=== PATIENT | male | born 1975 | race Caucasian/White ===

== ENCOUNTER 2018-02-20 13:00 | Outpatient (RCR) | payer BC | END 2018-05-05 | disposition home or self-care (01) | LOC: WSOT | DX: M77.01 Medial epicondylitis, right elbow (principal) ==

== ENCOUNTER 2018-05-06 13:00 | Outpatient (RCR) | payer BC | END 2019-02-11 | disposition home or self-care (01) | LOC: WSOT | DX: Z01.89 Encounter for other specified special examinations (principal) ==